=== PATIENT | male | born 1950 | race Two or more races ===

== ENCOUNTER 2017-12-15 06:59 | Inpatient (IN) | payer MEDICARE, OTHER ==
--- NOTE | 2017-12-11 13:01 | HP ---
Satellite [facility] - Chief Complaint Chief Complaint: left knee pain - Past Medical History Allergies/Adverse Reactions: Allergies Allergy/AdvReac Type Severity Reaction Status Date / Time No Known Drug Allergies Allergy Verified 12/11/17 11:11 - Current Medications Current Medications: Home Medications Medication Instructions Recorded Metformin HCl 500 mg PO DAILY 01/04/16 Simvastatin [Zocor -] 20 mg PO DAILY 01/04/16 Ferrous Sulfate [Iron] 325 mg PO DAILY 12/11/17 Satellite Physical Exam - Physical Examination General Appearance: Well Nourished, Well Developed, Alert & Oriented x3 ENT: Clear Lung: Normal air movement Heart: Regular rate & rhythm Extremities: Other (left knee- + swelling, + ttp, decr rom, nvi xrays show grade 4 tricompartmental djd) Neurological: Intact, Alert, Oriented Satellite Impression/Plan - Impression/Plan Impression: left knee djd Operative Procedure: left ruthann tkr Date to be Performed: 12/15/17
[2017-12-15] MEDS ORDERED: CELECOXIB 200 MG CAPSULE PO ONE (07:10)
[2017-12-15] MEDS ORDERED: GABAPENTIN 300 MG CAPSULE (FP) PO ONE (07:10)
[2017-12-15] MEDS ORDERED: TRANEXAMIC ACID 1000 MG/10 ML VIAL IVPUSH ONE (07:10)
[2017-12-15] MEDS ORDERED: CEFAZOLIN 2 GM in DEXTROSE 5%-WATER - 50 ML IVPB ONE (07:10)
[2017-12-15] MEDS ORDERED: oxyCODONE HCL 10 MG SUSTAINED ACTING TABLET PO ONE (07:10)
[2017-12-15] MEDS ORDERED: VANCOMYCIN 1,000 MG VIAL (RESTRICTED TO ID ONLY) ONE (07:17)
[2017-12-15] MEDS ORDERED: ceFAZolin SODIUM 1 GM VIAL ONE ×2 (07:17→09:42)
[2017-12-15 08:05] VITALS: BMI 33.5
[2017-12-15] MEDS ORDERED: BUPIVACAINE LIPOSOME/PF (EXPAREL) 266 MG/20 ML VIAL ONE (08:18)
[2017-12-15] MEDS ORDERED: DEXAMETHASONE SOD PHOSPHATE/PF 10 MG/ML SDV ONE (08:18)
[2017-12-15] MEDS ORDERED: MIDAZOLAM HCL 2 MG/2 ML SINGLE DOSE VIAL ONE (08:19)
[2017-12-15] MEDS ORDERED: ROPIVACAINE HCL 0.5% 30ML VIAL ONE (08:19)
[2017-12-15] MEDS ORDERED: SODIUM CHLORIDE 0.9% P/F 10 ML VIAL IJ ONE (08:19)
[2017-12-15] MEDS ORDERED: ePHEDrine SULFATE 50 MG/1 ML AMPULE ONE (09:34)
[2017-12-15] MEDS ORDERED: ONDANSETRON 4 MG/2 ML VIAL ONE (09:42)
[2017-12-15] MEDS ORDERED: PROPOFOL 20 ML ONE ×2 (09:42)
[2017-12-15] MEDS ORDERED: DEXAMETHASONE SOD PHOSPHATE 4 MG/1 ML VIAL ONE (09:42)
[2017-12-15] MEDS ORDERED: MAGNESIUM HYDROX 2400MG/30ML ORAL SUSPENSION 30 ML CUP PO PRN (11:14)
[2017-12-15] MEDS ORDERED: ONDANSETRON 4 MG/2 ML VIAL IVPUSH PRN ×2 (11:14→11:28)
[2017-12-15] MEDS ORDERED: MAG HYDROX/AL HYDROX/SIMETH 30 ML UNIT-DOSE CUP PO PRN (11:14)
[2017-12-15] MEDS ORDERED: LACTATED RINGERS SOLUTION 1,000 ML IV SCH ×2 (11:15→11:30)
--- NOTE | 2017-12-15 11:17 | OP ---
Operative Note - Note: Operative Date: 12/15/17 ([facility]) Pre-Operative Diagnosis: left knee djd Operation: left ruthann tkr Post-Operative Diagnosis: Same as Pre-op Surgeon: Doug Escobar Certification Officer: Cassius Rodriguez Anesthesiologist/CYCLE DIRECTOR: Artie Hinson Anesthesia: Spinal, Local Specimens Removed: bone fragments Estimated Blood Loss (mls): 200 Operative Report Dictated: Yes
[2017-12-15] MEDS ORDERED: PROMETHAZINE HCL 25 MG/1 ML VIAL IVPUSH PRN (11:28)
[2017-12-15] MEDS ORDERED: ACETAMINOPHEN 325 MG TABLET (FP) PO SCH (11:30)
--- NOTE | 2017-12-15 14:18 | SPEC ---
DATE OF OPERATION: 12/15/2017 PREOPERATIVE DIAGNOSIS: Degenerative joint disease, left knee. POSTOPERATIVE DIAGNOSIS: Degenerative joint disease, left knee. PROCEDURE: Press-fit left total knee replacement with robotic-assisted navigation (MAKOplasty). SURGICAL ATTENDING: Ramon Escobar MD [employer] RN: QING Blas ANESTHESIA: Regional and spinal. CLOSURE: A Triathlon Press-Fit knee system with a 4 femur, 5 tibia, 35 Press-Fit patella; a 9 polyethylene; No. 1 Vicryl, fascia; 0 and 2-0, subcutaneous; and 3-0 Monocryl subcuticular with skin glue; 4-0 undyed Vicryl for pin sites. ESTIMATED BLOOD LOSS: Approximately 100 mL. COMPLICATIONS: None. TOURNIQUET TIME: No tourniquet was used. DESCRIPTION OF OPERATIVE PROCEDURE: Patient was taken to the operating room on December 15, 2017. Regional and spinal anesthesia was administered by the anesthesiologist. IV Kefzol was administered prophylactically prior to the case as well as TXA. The left lower extremity was prepped and draped in the usual sterile fashion. The midline 10- to 12-cm longitudinal incision was made. Hemostasis was achieved with Bovie cautery. Sharp dissection was carried down to the extensor mechanism which was perform the procedure. Medial parapatellar arthrotomy was then performed, leaving a cuff of tissue for later closure. The patella was inverted and the knee was flexed up. The fat pad was excised. Subperiosteal dissection was done on the anteromedial proximal tibia until the knee was able to be brought forward. This was facilitated by taking the ACL, PCL and medial and lateral menisci. Checkpoints were placed in both the femur and in the tibia. Two parallel threaded pins were drilled superior to the knee joint through the already made incision from anterior to posterior just going through the anterior cortex but just engaging but not going through the posterior cortex. Two threaded pins were drilled through 2 small stab incisions in parallel fashion 1 handbreadth below the tibial tubercle through the anterior cortex of the tibia and engaging but not going through the posterior cortex. Both sets of pins were attached to navigation arrays for the AIDA system. The knee was then registered with the navigation system with center of rotation of the hip, medial and lateral malleoli and multiple sites both on the tibia and on the femur. Confirmation of excellent registration was confirmed by "popping the bubbles." At this time, the knee was thoroughly inspected to remove all osteophytes around the knee. The knee was then tensioned in varus/valgus at both full extension and at 90 degrees of flexion to ascertain our gaps. The virtual position of the components was optimized to ensure equal gaps throughout the range of motion. Once this was performed, the robot was brought into the field, was registered. The bone was cut as per the specifications on both the tibia and on the femur. The box cuts were then made as well. Excellent trial stability was obtained on the femur. The tibial baseplate was allowed to "find itself" and then was clipped into place. Confirmation of excellent external rotation of that component was confirmed by the navigation device as well.The patella was calibered for thickness and cut at the appropriate level. The appropriate lollipop was used to drill 3 holes in the patella and a trial asymmetric patellar button was applied. The knee was taken through a range of motion and found to have excellent stability from full extension to full flexion with excellent tracking of the patella. The trial components were then removed. The lug holes were drilled in the femur. The cementless keel was punched in the tibia. The real Press-Fit components were malleted into place, first with the tibia and then with the femur, and then the patella was crimped into place as well. The real polyethylene liner was then clipped into place. Range of motion, stability and tracking were as described earlier. The knee was thoroughly irrigated with copious amounts of irrigation. Vancomycin powder was placed inside the joint. The medial parapatellar arthrotomy was then closed using No. 1 Vicryl interrupted suture. Post closure of the arthrotomy, the knee was taken through a range of motion and found to have no undue tension on the repair. The subcutaneous was then pulse antibiotic irrigated, closed with 0 and 2-0 Vicryl and 3-0 Monocryl subcuticular with skin glue for the skin. Prior to closure, the checkpoints were removed as were the threaded pins. The tibial pin sites were closed with 4-0 undyed Vicryl. A sterile pressure Aquacel dressing was applied. No tourniquet was used during the case. The total blood loss was approximately 100 mL. No complication. Patient was transferred to recovery in stable condition. RAMON ESCOBAR M.D. DAVID/[id number]
[2017-12-15] MEDS: INSULIN SLIDING SCALE (NOVOLOG) 1 VIAL SQ SCH (17:04)
[2017-12-15] MEDS: CEFAZOLIN 1 GM/D5W 1 GRAM/50 ML BAG IVPB SCH (17:05)
[2017-12-15] MEDS: oxyCODONE HCL 5 MG TABLET PO PRN ×2 (17:05→22:10)
[2017-12-15] MEDS: SENNOSIDES/DOCUSATE COMBO (SENNA PLUS) TABLET (UD) PO SCH (22:10)
[2017-12-15] MEDS: ATORVASTATIN CA 10 MG TABLET (FP) PO SCH (22:10)
[2017-12-15] MEDS: oxyCODONE HCL 10 MG SUSTAINED ACTING TABLET PO SCH (22:10)
[2017-12-15] MEDS: GABAPENTIN 300 MG CAPSULE (FP) PO SCH (22:10)
[2017-12-16] MEDS: CEFAZOLIN 1 GM/D5W 1 GRAM/50 ML BAG IVPB SCH (02:00)
[2017-12-16] MEDS: metFORMIN HCL 500 MG TABLET (FP) PO SCH (06:49)
[2017-12-16] MEDS: oxyCODONE HCL 5 MG TABLET PO PRN ×2 (06:50→08:47)
[2017-12-16] MEDS: ASPIRIN 325 MG TABLET PO SCH (08:00)
[2017-12-16] MEDS: ACETAMINOPHEN 325 MG TABLET (FP) PO SCH ×3 (08:05→20:15)
[2017-12-16 08:08] LABS: HEMATOCRIT 35.7 % (35.4-49); HEMOGLOBIN 12.2 GM/dl (11.7-16.9); MCH 32.6 pg (25.7-33.7); MCHC 34.1 g/dl (32.0-35.9); MEAN CELL VOLUME 95.5 fl (80-96); MEAN PLT VOLUME 9.8 fl (7.5-11.1); PLATELET COUNT 132 K/MM3 (134-434); RBC 3.73 M/mm3 (4.00-5.60); RDW 12.5 % (11.9-15.9); WHITE BLOOD COUNT 14.1 K/mm3 (4.0-10.8)
[2017-12-16] MEDS: oxyCODONE HCL 10 MG SUSTAINED ACTING TABLET PO SCH ×2 (09:29→22:50)
[2017-12-16] MEDS: GABAPENTIN 300 MG CAPSULE (FP) PO SCH ×2 (09:29→22:50)
[2017-12-16] MEDS: SENNOSIDES/DOCUSATE COMBO (SENNA PLUS) TABLET (UD) PO SCH ×2 (09:29→22:49)
[2017-12-16] MEDS: MULTIVITAMINS (DAILY MVI) TABLET (FP) PO SCH (09:30)
[2017-12-16] MEDS: PANTOPRAZOLE 40 MG TABLET (FP) PO SCH (09:30)
[2017-12-16] MEDS ORDERED: PATIENT'S OWN MEDICATION (NON-FORMULARY) (Simvastatin 20 MG) PO SCH (10:00)
--- NOTE | 2017-12-16 21:14 | PN ---
Progress Note (short form) - Note Progress Note: AVSS COMFORTABLE BANDAGES DRY AND INTACT NVI CALF SOFT AND NT AROM 0-100 IMP: DOING WELL PLAN: DC TOMORROW IN AM, HOME PT, F/U X 1 WEEK IN MY OFFICE
[2017-12-16] MEDS: INSULIN SLIDING SCALE (NOVOLOG) 1 VIAL SQ SCH (22:47)
[2017-12-16] MEDS: ATORVASTATIN CA 10 MG TABLET (FP) PO SCH (22:49)
[2017-12-17] MEDS: ACETAMINOPHEN 325 MG TABLET (FP) PO SCH ×2 (06:34→08:00)
[2017-12-17] MEDS: metFORMIN HCL 500 MG TABLET (FP) PO SCH (07:03)
[2017-12-17] MEDS: INSULIN SLIDING SCALE (NOVOLOG) 1 VIAL SQ SCH (07:03)
[2017-12-17 07:25] VITALS: BP 117/74; PULSE 81; TEMP 97.6
[2017-12-17] MEDS: ASPIRIN 325 MG TABLET PO SCH (08:00)
[2017-12-17 09:19] LABS: HEMATOCRIT 34.4 % (35.4-49); HEMOGLOBIN 11.7 GM/dl (11.7-16.9); MCH 32.3 pg (25.7-33.7); MCHC 33.9 g/dl (32.0-35.9); MEAN CELL VOLUME 95.5 fl (80-96); MEAN PLT VOLUME 11.4 fl (7.5-11.1); PLATELET COUNT 107 K/MM3 (134-434); RBC 3.61 M/mm3 (4.00-5.60); RDW 12.7 % (11.9-15.9); WHITE BLOOD COUNT 12.8 K/mm3 (4.0-10.8)
[2017-12-17] MEDS: oxyCODONE HCL 10 MG SUSTAINED ACTING TABLET PO SCH (09:54)
[2017-12-17] MEDS: oxyCODONE HCL 5 MG TABLET PO PRN (09:54)
[2017-12-17] MEDS: GABAPENTIN 300 MG CAPSULE (FP) PO SCH (09:55)
[2017-12-17] MEDS: PANTOPRAZOLE 40 MG TABLET (FP) PO SCH (09:55)
[2017-12-17] MEDS: SENNOSIDES/DOCUSATE COMBO (SENNA PLUS) TABLET (UD) PO SCH (09:55)
[2017-12-17] MEDS: MULTIVITAMINS (DAILY MVI) TABLET (FP) PO SCH (09:55)
--- NOTE | 2017-12-22 15:43 | PATH ---
Surgical Pathology Report Patient Name: CINTIA YEPEZ Med. Rec. #: [id number] /Age/Gender: 1950 (Age: 67) / M Account: [id number] Location: [facility] MED-SURG Taken: 12/15/2017 Received: 12/15/2017 Reported: 12/22/2017 Physicians: Doug Escobar M.D. Specimen(s) Received LEFT KNEE BONES Clinical History Osteoarthritis Final Diagnosis BONE AND SOFT TISSUE, LEFT KNEE, REPLACEMENT: DEGENERATIVE JOINT DISEASE. Electronically Signed Niko Romero M.D. Gross Description Received in formalin labeled "left knee bones," is a 16.0 x 11.5 x 2.0 cm aggregate of multiple irregular portions of bone and soft tissue. The tibial plateau measures 7.8 x 5.5 x 1.6 cm. There is a 1.5 cm in greatest dimension area of eburnation identified. The remaining articular surfaces are chris-yellow and diffusely granular. The underlying trabecular bone is yellow and hard. Sp[place] sections are submitted in one cassette, following decalcification. 12/18/2017 [facility]12/18/2017
== END 2017-12-17 11:51 | disposition home health service (06) | DRG 470 ==
LOC: FM/S 06:59
PROVIDERS: ADMIT Orthopaedic Surgery; ATTEND Orthopaedic Surgery
PROC: 8E0Y0CZ Robotic Assisted Procedure of Lower Extremity, Open Approach (ICD-10-PCS; 2017-12-15)
PROC: 0SRD06A Replacement of Left Knee Joint with Oxidized Zirconium on Polyethylene Synthetic Substitute, Uncemented, Open Approach (ICD-10-PCS; principal; 2017-12-15 09:46)
DX: M17.12 Unilateral primary osteoarthritis, left knee (principal)
CPT/HCPCS: 36415; 73560-TC-LT-FY; 82962; 85027; 88304-TC; 88311-TC; 94010; 94760; 97116-GP; 97161-GP

== ENCOUNTER 2018-04-03 05:59 | Inpatient (IN) | payer MEDICARE, OTHER ==
[2018-03-30 16:46] VITALS: BMI 33.6
[2018-04-03] MEDS ORDERED: GABAPENTIN 300 MG CAPSULE (FP) PO ONE (06:20)
[2018-04-03] MEDS ORDERED: CEFAZOLIN 2 GM in DEXTROSE 5%-WATER - 50 ML IVPB ONE (06:20)
[2018-04-03] MEDS ORDERED: CELECOXIB 200 MG CAPSULE PO ONE (06:20)
[2018-04-03] MEDS ORDERED: oxyCODONE HCL 10 MG SUSTAINED ACTING TABLET PO ONE (06:20)
[2018-04-03] MEDS ORDERED: TRANEXAMIC ACID 1000 MG/10 ML VIAL IVPUSH ONE (06:20)
[2018-04-03] MEDS ORDERED: SODIUM CHLORIDE 0.9% P/F 10 ML VIAL IJ ONE ×2 (06:43→07:06)
[2018-04-03] MEDS ORDERED: DEXAMETHASONE SOD PHOSPHATE/PF 10 MG/ML SDV ONE (06:43)
[2018-04-03] MEDS ORDERED: BUPIVACAINE HCL/PF (5 MG/ML) 30 ML VIAL IJ ONE ×2 (06:43→06:54)
[2018-04-03] MEDS ORDERED: BUPIVACAINE LIPOSOME/PF (EXPAREL) 266 MG/20 ML VIAL ONE (06:43)
[2018-04-03] MEDS ORDERED: MIDAZOLAM HCL 2 MG/2 ML SINGLE DOSE VIAL ONE (06:43)
[2018-04-03] MEDS ORDERED: ceFAZolin SODIUM 1 GM VIAL ONE (07:06)
[2018-04-03] MEDS ORDERED: DEXAMETHASONE SOD PHOSPHATE 4 MG/1 ML VIAL ONE (07:06)
[2018-04-03] MEDS ORDERED: LIDOCAINE HCL/PF 2% SDV 5ML VIAL ONE (07:06)
[2018-04-03] MEDS ORDERED: ONDANSETRON 4 MG/2 ML VIAL ONE (07:06)
[2018-04-03] MEDS ORDERED: KETOROLAC TROMETHAMINE 30 MG/1 ML VIAL ONE (07:06)
[2018-04-03] MEDS ORDERED: SUCCINYLCHOLINE CHLORIDE 200 MG/10 ML VIAL ONE (07:07)
--- NOTE | 2018-04-03 07:48 | HP ---
Satellite [facility] - Chief Complaint Chief Complaint: right knee pain - Past Medical History Allergies/Adverse Reactions: Allergies Allergy/AdvReac Type Severity Reaction Status Date / Time No Known Drug Allergies Allergy Verified 12/11/17 11:11 - Current Medications Current Medications: Home Medications Medication Instructions Recorded Metformin HCl 500 mg PO DAILY 01/04/16 Simvastatin [Zocor -] 20 mg PO DAILY 01/04/16 Ferrous Sulfate [Iron] 325 mg PO DAILY 12/11/17 Aspirin [ASA -] 325 mg PO DAILY@0800 tablet 12/15/17 Satellite Physical Exam - Physical Examination Vital Signs: Vital Signs Period Temp Pulse Resp BP Sys/Bernal Pulse Ox Last 24 Hr 98.3 F 62 18 136/77 General Appearance: Well Nourished, Well Developed, Alert & Oriented x3 ENT: Clear Lung: Normal air movement Heart: Regular rate & rhythm Extremities: Other (right knee- + swelling, + ttp, decr rom, nvi xrays show grade 4 tricompartmental djd) Neurological: Intact, Alert, Oriented Satellite Impression/Plan - Impression/Plan Impression: right knee djd Operative Procedure: right ruthann tkr Date to be Performed: 04/03/18
[2018-04-03] MEDS ORDERED: oxyCODONE HCL 5 MG TABLET PO PRN (07:51)
[2018-04-03] MEDS ORDERED: ONDANSETRON 4 MG/2 ML VIAL IVPUSH PRN ×2 (07:51→09:52)
[2018-04-03] MEDS ORDERED: PROPOFOL 20 ML ONE (08:16)
[2018-04-03] MEDS ORDERED: VANCOMYCIN 1,000 MG VIAL (RESTRICTED TO ID ONLY) IVPB ONE (09:06)
[2018-04-03] MEDS ORDERED: MAGNESIUM HYDROX 2400MG/30ML ORAL SUSPENSION 30 ML CUP PO PRN (09:52)
[2018-04-03] MEDS ORDERED: MAG HYDROX/AL HYDROX/SIMETH 30 ML UNIT-DOSE CUP PO PRN (09:52)
--- NOTE | 2018-04-03 09:55 | OP ---
Operative Note - Note: Operative Date: 04/03/18 ([facility]) Pre-Operative Diagnosis: right knee djd Operation: right ruthann tkr Post-Operative Diagnosis: Same as Pre-op Surgeon: Doug Escobar Stove Tender: Cassius Rodriguez Anesthesiologist/VOCAL MUSIC INSTRUCTOR: Francesco Godoy Anesthesia: Spinal, Local Specimens Removed: bone fragments Estimated Blood Loss (mls): 200 Operative Report Dictated: Yes
[2018-04-03] MEDS ORDERED: LACTATED RINGERS SOLUTION 1,000 ML IV SCH (10:00)
--- NOTE | 2018-04-03 12:02 | SPEC ---
DATE OF OPERATION: 04/03/2018 PREOPERATIVE DIAGNOSIS: Degenerative joint disease, right knee. POSTOPERATIVE DIAGNOSIS: Degenerative joint disease, right knee. PROCEDURE: Right total knee replacement with robotic-assisted navigation (MAKOplasty). SURGICAL ATTENDING: Doug Escobar MD LEGAL INSTRUCTOR: QING Blas ANESTHESIA: Regional and spinal. CLOSURE: A Press-Fit Triathlon knee system with a 5 femur, 5 tibia, 9 polyethylene, a 32 patella; No. 1 Vicryl, fascia; 0 and 2-0 for subcutaneous; and 3-0 Monocryl subcuticular with skin glue for skin; 4-0 undyed Vicryl for pin sites. ESTIMATED BLOOD LOSS: Approximately 100 mL. COMPLICATIONS: None. CONDITION: To recovery room in stable condition. DESCRIPTION OF OPERATIVE PROCEDURE: Patient was taken to the operating room on April 03, 2018. Regional and spinal anesthesia was administered by the anesthesiologist. IV Kefzol was administered prophylactically prior to the case as well as TXA. The right lower extremity was prepped and draped in the usual sterile fashion. The midline 10- to 12-cm longitudinal incision was made. Hemostasis was achieved with Bovie cautery. Sharp dissection was carried down to the extensor mechanism which was perform the procedure. Medial parapatellar arthrotomy was then performed, leaving a cuff of tissue for later closure. The patella was inverted and the knee was flexed up. The fat pad was excised. Subperiosteal dissection was done on the anteromedial proximal tibia until the knee was able to be brought forward. This was facilitated by taking the ACL, PCL and medial and lateral menisci. Checkpoints were placed in both the femur and in the tibia. Two parallel threaded pins were drilled superior to the knee joint through the already made incision from anterior to posterior just going through the anterior cortex but just engaging but not going through the posterior cortex. Two threaded pins were drilled through 2 small stab incisions in parallel fashion 1 handbreadth below the tibial tubercle through the anterior cortex of the tibia and engaging but not going through the posterior cortex. Both sets of pins were attached to navigation arrays for the AIDA system. The knee was then registered with the navigation system with center of rotation of the hip, medial and lateral malleoli and multiple sites both on the tibia and on the femur. Confirmation of excellent registration was confirmed by "popping the bubbles." At this time, the knee was thoroughly inspected to remove all osteophytes around the knee. The knee was then tensioned in varus/valgus at both full extension and at 90 degrees of flexion to ascertain our gaps. The virtual position of the components was optimized to ensure equal gaps throughout the range of motion. Once this was performed, the robot was brought into the field, was registered. The bone was cut as per the specifications on both the tibia and on the femur. The box cuts were then made as well. Excellent trial stability was obtained on the femur. The tibial baseplate was allowed to "find itself" and then was clipped into place. Confirmation of excellent external rotation of that component was confirmed by the navigation device as well.The patella was calibered for thickness and cut at the appropriate level. The appropriate lollipop was used to drill 3 holes in the patella and a trial asymmetric patellar button was applied. The knee was taken through a range of motion and found to have excellent stability from full extension to full flexion with excellent tracking of the patella. The trial components were then removed. The lug holes were drilled in the femur. The cementless keel was punched in the tibia. The real Press-Fit components were malleted into place, first with the tibia and then with the femur, and then the patella was crimped into place as well. The real polyethylene liner was then clipped into place. Range of motion, stability and tracking were as described earlier. The knee was thoroughly irrigated with copious amounts of irrigation. Vancomycin powder was placed inside the joint. The medial parapatellar arthrotomy was then closed using No. 1 Vicryl interrupted suture. Post closure of the arthrotomy, the knee was taken through a range of motion and found to have no undue tension on the repair. The subcutaneous was then pulse antibiotic irrigated, closed with 0 and 2-0 Vicryl and 3-0 Monocryl subcuticular with skin glue for the skin. Prior to closure, the checkpoints were removed as were the threaded pins. The tibial pin sites were closed with 4-0 undyed Vicryl. A sterile pressure Aquacel dressing was applied. No tourniquet was used during the case. The total blood loss was approximately 100 mL. No complication. Patient was transferred to recovery in stable condition. Pravin [id number]
[2018-04-03] MEDS: PANTOPRAZOLE 40 MG TABLET (FP) PO SCH (13:40)
[2018-04-03] MEDS: ACETAMINOPHEN 325 MG TABLET (FP) PO SCH ×2 (13:45→19:51)
[2018-04-03] MEDS: FERROUS SO4 325 MG TABLET (FP) PO SCH (13:45)
[2018-04-03] MEDS: CEFAZOLIN 2 GM/D5W 2 GM/50 ML ML IVPB SCH ×2 (16:00→23:46)
[2018-04-03] MEDS: INSULIN SLIDING SCALE (NOVOLOG) 1 VIAL SQ SCH ×3 (16:30→21:40)
[2018-04-03] MEDS: metFORMIN HCL 500 MG TABLET (FP) PO SCH (16:40)
[2018-04-03] MEDS: oxyCODONE HCL 5 MG TABLET PO PRN ×2 (17:00→21:10)
[2018-04-03] MEDS: SENNOSIDES/DOCUSATE COMBO (SENNA PLUS) TABLET (UD) PO SCH ×2 (19:42→21:10)
[2018-04-03] MEDS: LACTATED RINGERS SOLUTION 1,000 ML IV SCH (19:43)
[2018-04-03] MEDS: MULTIVITAMINS (DAILY MVI) TABLET (FP) PO SCH (20:50)
[2018-04-03] MEDS: oxyCODONE HCL 10 MG SUSTAINED ACTING TABLET PO SCH ×2 (20:50→21:10)
[2018-04-03] MEDS: ATORVASTATIN CA 10 MG TABLET (FP) PO SCH (21:10)
[2018-04-04] MEDS: ACETAMINOPHEN 325 MG TABLET (FP) PO SCH ×4 (02:23→19:41)
[2018-04-04] MEDS: INSULIN SLIDING SCALE (NOVOLOG) 1 VIAL SQ SCH ×4 (06:58→21:31)
[2018-04-04 08:39] LABS: HEMATOCRIT 33.3 % (35.4-49); HEMOGLOBIN 11.5 GM/dl (11.7-16.9); MCH 31.5 pg (25.7-33.7); MCHC 34.5 g/dl (32.0-35.9); MEAN CELL VOLUME 91.5 fl (80-96); MEAN PLT VOLUME 9.7 fl (7.5-11.1); PLATELET COUNT 146 K/MM3 (134-434); RBC 3.64 M/mm3 (4.00-5.60); RDW 13.8 % (11.9-15.9); WHITE BLOOD COUNT 16.4 K/mm3 (4.0-10.8)
--- NOTE | 2018-04-04 08:47 | PN ---
Progress Note (short form) - Note Progress Note: Ortho Pt seen and examined s/p right ruthann tkr pod #1 Selected Entries 04/04/18 05:00 Temperature 98.2 F Pulse Rate 74 Respiratory 20 Rate Blood Pressure 124/76 Laboratory Tests 04/04/18 07:30 WBC 16.4 H Hgb 11.5 L Hct 33.3 L Plt Count 146 D dressing c/d/i, calf soft, nt rom 0-60, nvi a/p PT dvt ppx pain control d/c home tomorrow if stable
[2018-04-04] MEDS: FERROUS SO4 325 MG TABLET (FP) PO SCH (09:11)
[2018-04-04] MEDS: SENNOSIDES/DOCUSATE COMBO (SENNA PLUS) TABLET (UD) PO SCH ×2 (09:11→21:32)
[2018-04-04] MEDS: oxyCODONE HCL 10 MG SUSTAINED ACTING TABLET PO SCH ×2 (09:11→21:32)
[2018-04-04] MEDS: ASPIRIN 325 MG TABLET PO SCH (09:11)
[2018-04-04] MEDS: MULTIVITAMINS (DAILY MVI) TABLET (FP) PO SCH (09:11)
[2018-04-04] MEDS: PANTOPRAZOLE 40 MG TABLET (FP) PO SCH (09:11)
[2018-04-04] MEDS: metFORMIN HCL 500 MG TABLET (FP) PO SCH (09:11)
--- NOTE | 2018-04-04 10:27 | PN ---
Progress Note (short form) - Note Progress Note: Post op day#1.S/p Right total knee replacement under spinal anesthesia with R adductor canal and popletial N block uneventful.Patient stable and has pain score of 2-3/10.No any anesthesia related problem.Patient DC from the anesthesia care.
[2018-04-04] MEDS: LACTATED RINGERS SOLUTION 1,000 ML IV SCH (10:30)
[2018-04-04] MEDS: oxyCODONE HCL 5 MG TABLET PO PRN (18:10)
[2018-04-04] MEDS: ATORVASTATIN CA 10 MG TABLET (FP) PO SCH (21:32)
[2018-04-05] MEDS: ACETAMINOPHEN 325 MG TABLET (FP) PO SCH ×2 (02:15→09:39)
[2018-04-05] MEDS: oxyCODONE HCL 5 MG TABLET PO PRN ×3 (02:15→09:40)
[2018-04-05 05:44] VITALS: BP 120/65; PULSE 82; TEMP 98.4
[2018-04-05] MEDS: INSULIN SLIDING SCALE (NOVOLOG) 1 VIAL SQ SCH (06:18)
[2018-04-05 07:26] LABS: HEMATOCRIT 32.3 % (35.4-49); HEMOGLOBIN 10.9 GM/dl (11.7-16.9); MCHC 33.6 g/dl (32.0-35.9); MEAN CELL VOLUME 92.2 fl (80-96); MEAN PLT VOLUME 9.1 fl (7.5-11.1); PLATELET COUNT 149 K/MM3 (134-434); RDW 14.1 % (11.9-15.9); WHITE BLOOD COUNT 12.4 K/mm3 (4.0-10.8)
--- NOTE | 2018-04-05 08:35 | PN ---
Progress Note (short form) - Note Progress Note: Ortho Pt seen and examined s/p right ruthann tkr pod #2 Selected Entries 04/05/18 05:42 Temperature 98.4 F Pulse Rate 82 Respiratory 18 Rate Blood Pressure 120/65 Laboratory Tests 04/05/18 07:05 WBC 12.4 H Hgb 10.9 L Hct 32.3 L Plt Count 149 dressing c/d/i, calf soft, nt rom 0-60, nvi a/p PT dvt ppx pain control d/c home today f/u in 1 week
--- NOTE | 2018-04-05 08:36 | DS ---
Physical Examination Vital Signs: Vital Signs Temperature 98.4 F 04/05/18 05:42 Pulse Rate 82 04/05/18 05:42 Respiratory Rate 18 04/05/18 05:42 Blood Pressure 120/65 04/05/18 05:42 O2 Sat by Pulse Oximetry (%) 95 04/05/18 05:42 Labs: CBC, BMP 04/05/18 07:05 Discharge Summary Reason For Visit: OSTEOARTHRITIS Procedures: Principal: s/p right ruthann tkr Hospital Course: admitted for elective right ruthann tkr, uneventful post-op, stable for d/c Condition: Good - Instructions Diet, Activity, Other Instructions: Post-op Instructions-Total Knee Replacement Call the office for a follow-up appointment in 1 week - [phone] Aspirin 325mg daily for 6 weeks. Pain medication was sent into your pharmacy. Apply Graduated Compression Stockings (TEDs) to both lower extremities- remove daily for hygiene ONLY Apply Sequential Compression Device (SCDs) to both Lower extremities remove for PT and hygiene ONLY Apply cold packs to affected area for 15 minutes every 2 hours. Physical Therapist will come to your home for the first 5 days. You will be set up with outpatient PT at your first post-operative visit. Patient may ambulate as tolerated-encourage self care (at least every 2-3 hours while awake) with walker or cane Maintain Aquacel (waterproof) dressing to operative wound (will be removed by surgeon at first office visit) Shower with Aquacel dressing in place-if Aquacel integrity compromised, remove and apply dry sterile dressing and notify Orthopedist. DO NOT SHOWER unless Orthopedists approves without Aquacel dressing CONTACT THE OFFICE FOR ANY CHANGE IN YOUR CONDITION (for example-fever greater than 102 degrees, excessive bleeding from operative site, purulent drainage, severe swelling or pain) GO TO THE EMERGENCY ROOM IF THERE IS A MEDICAL EMERGENCY Knee Precautions: * Keep a rolled towel under affected heel while in bed or chair (to keep knee in extension) * Keep affected leg elevated except during mealtimes * DO NOT PLACE PILLOW UNDER AFFECTED KNEE * If you have any questions, please do not hesitate to call the office - . Referrals: Doug Escobar MD [Staff Physician] - Disposition: VNS/HOME HEALTH CARE - Home Medications Comprehensive Discharge Medication List: Ambulatory Orders Metformin HCl 500 mg PO DAILY 01/04/16 Simvastatin [Zocor -] 20 mg PO DAILY 01/04/16 Ferrous Sulfate [Iron] 325 mg PO DAILY 12/11/17 Aspirin [ASA -] 325 mg PO DAILY@0800 tablet 12/15/17 Oxycodone HCl/Acetaminophen [Percocet 5-325 mg Tablet] 1 - 2 tab PO Q6H #50 tab MDD 8 04/03/18
[2018-04-05] MEDS: ASPIRIN 325 MG TABLET PO SCH (09:40)
[2018-04-05] MEDS: metFORMIN HCL 500 MG TABLET (FP) PO SCH (09:40)
[2018-04-05] MEDS: SENNOSIDES/DOCUSATE COMBO (SENNA PLUS) TABLET (UD) PO SCH (09:42)
[2018-04-05] MEDS: PANTOPRAZOLE 40 MG TABLET (FP) PO SCH (09:42)
--- NOTE | 2018-04-05 16:18 | PATH ---
Surgical Pathology Report Patient Name: CINTIA YEPEZ Med. Rec. #: [id number] /Age/Gender: 1950 (Age: 67) / M Account: [id number] Location: [facility] Taken: 04/03/2018 Received: 04/03/2018 Reported: 04/05/2018 Physicians: Doug Escobar M.D. Specimen(s) Received RIGHT KNEE BONE Clinical History Right knee osteoarthritis Final Diagnosis BONE, RIGHT KNEE, TOTAL KNEE REPLACEMENT: DEGENERATIVE JOINT DISEASE. Electronically Signed Jayna Cortés M.D. Gross Description Received in formalin labeled "right knee bone," is a 12.0 x 11.0 x 2.0 cm aggregate of chris portions of bone and soft tissue. The tibial plateau measures 7.7 x 5.5 x 1.6 cm. There are multiple areas of eburnation present, measuring up to 2 cm in greatest dimension. The remaining articular surfaces are chris-yellow and diffusely granular. The underlying trabecular bone is yellow and hard. [place]er sections are submitted in one cassette, following decalcification. 04/04/2018 [place]04/04/2018
== END 2018-04-05 11:37 | disposition home health service (06) | DRG 470 ==
LOC: FM/S 05:59
PROVIDERS: ADMIT Orthopaedic Surgery; ATTEND Orthopaedic Surgery
PROC: 8E0Y0CZ Robotic Assisted Procedure of Lower Extremity, Open Approach (ICD-10-PCS; 2018-04-03)
PROC: 0SRC0JA Replacement of Right Knee Joint with Synthetic Substitute, Uncemented, Open Approach (ICD-10-PCS; principal; 2018-04-03 08:31)
DX: M17.11 Unilateral primary osteoarthritis, right knee (principal)
CPT/HCPCS: 36415; 73560-TC-RT-FY; 82962; 85027; 88304-TC; 88311-TC; 94010; 94760; 97116-GP; 97162-GP

== ENCOUNTER 2018-07-16 09:19 | Day surgery (SDC) | payer MEDICARE ==
[2018-07-16] MEDS ORDERED: MIDAZOLAM HCL 2 MG/2 ML SINGLE DOSE VIAL ONE ×2 (10:35)
[2018-07-16] MEDS ORDERED: DEXAMETHASONE SOD PHOSPHATE 4 MG/1 ML VIAL ONE (11:52)
--- NOTE | 2018-07-16 13:06 | OP ---
Operative Note - Note: Operative Date: 07/16/18 Pre-Operative Diagnosis: Left kidney stones Operation: Left ESWL Findings: 5 mm mid pole Left renal stone Post-Operative Diagnosis: Same as Pre-op Surgeon: Gelacio Anderson Anesthesia: Fractional Estimated Blood Loss (mls): 0
[2018-07-16 13:49] VITALS: TEMP 97.5
[2018-07-16 13:52] VITALS: BP 125/77; PULSE 60
--- NOTE | 2018-07-17 08:34 | OP ---
DATE OF OPERATION: 07/16/2018 PREOPERATIVE DIAGNOSIS: Left renal stone. POSTOPERATIVE DIAGNOSIS: Left renal stone. PROCEDURE: Left extracorporeal shock wave lithotripsy. ATTENDING: Jatinder Morris MD ANESTHESIA: Fractional. OPERATION WENT FOLLOWS: The patient was brought in the operating room, placed in supine position on the operating room table. Ultrasonography and fluoroscopy were performed. A 5-mm left renal stone was identified. At this point, anesthesia and preoperative antibiotics were administered. Shock wave lithotripsy was then started, 2500 impulses at 17 joules of power were administered to the stone under real time ultrasonography and fluoroscopy. Excellent fragmentation of the stone was noted. No complications were noted. The disposition of the patient was to the recovery room. JATINDER MORRIS M.D. [id number]
== END 2018-07-16 13:45 | disposition home or self-care (01) ==
LOC: JASU-SURG 09:19
PROVIDERS: ATTEND Urology
PROC: 0TF4XZZ Fragmentation in Left Kidney Pelvis, External Approach (ICD-10-PCS; principal; 2018-07-16 11:00)
DX: N20.0 Calculus of kidney (principal)
CPT/HCPCS: 82962; 94760

== ENCOUNTER 2018-07-30 11:02 | Day surgery (SDC) | payer MEDICARE, OTHER ==
[2018-07-27 17:40] VITALS: BMI 30.7
[2018-07-30 12:01] VITALS: TEMP 98.1
[2018-07-30] MEDS ORDERED: MIDAZOLAM HCL 2 MG/2 ML SINGLE DOSE VIAL ONE ×2 (13:35→13:40)
--- NOTE | 2018-07-30 14:14 | OP ---
Operative Note - Note: Operative Date: 07/30/18 Pre-Operative Diagnosis: Right Renal stone Operation: Right ESWL Findings: 5 mm Right upper pole kidney stone Post-Operative Diagnosis: Same as Pre-op Surgeon: Gelacio Anderson Anesthesia: Fractional Estimated Blood Loss (mls): 0
[2018-07-30 20:04] VITALS: BP 132/84; PULSE 60
--- NOTE | 2018-07-30 21:56 | OP ---
DATE OF OPERATION: 07/30/2018 PREOPERATIVE DIAGNOSIS: Right renal stone. POSTOPERATIVE DIAGNOSIS: Right renal stone. PROCEDURE: Right extracorporeal shock wave lithotripsy. ATTENDING: Jatinder Morris MD ANESTHESIA: Fractional. DESCRIPTION OF OPERATION: The patient was brought in the operating room and placed in a supine position on the operating room table. Ultrasonography and fluoroscopy were performed. A 5-mm right upper pole stone was identified. Anesthesia was then administered. Preoperative antibiotics were also given. Shock wave lithotripsy was then started; 2500 impulses at 17 joules of power were administered to the stone with excellent fragmentation noted under real-time ultrasonography and fluoroscopy with no complications noted. The disposition of the patient was to the recovery room. JATINDER MORRIS M.D. [id number]
== END 2018-07-30 15:30 | disposition home or self-care (01) ==
LOC: JASU-SURG 11:02
PROVIDERS: ATTEND Urology
PROC: 0TF3XZZ Fragmentation in Right Kidney Pelvis, External Approach (ICD-10-PCS; principal; 2018-07-30 13:15)
DX: N20.0 Calculus of kidney (principal)
CPT/HCPCS: 82962

== ENCOUNTER 2023-04-13 07:43 | Inpatient (IN) | payer OTHER ==
[2023-04-13 07:51] VITALS: BMI 32.3
[2023-04-13] MEDS ORDERED: ACETAMINOPHEN 500 MG TABLET (FP) PO ONE (08:39)
[2023-04-13] MEDS ORDERED: ACETAMINOPHEN 1000 MG/100 ML BAG IVPB ONE ×2 (08:45→15:58)
[2023-04-13] MEDS ORDERED: ACETAMINOPHEN INJECTION 100 ML IVPB ONE ×3 (08:58→16:40)
[2023-04-13 10:14] LABS: EPI CELLS 11 /uL (0-25.1); HYALINE CASTS 5 /uL (0-3.1); PH,URINE 8.5 (5.0-8.0); URINE APPEARANCE CLOUDY; URINE BACTERIA 8990 /uL (0-1359); URINE BILIRUBIN NEGATIVE (NEGATIVE); URINE COLOR YELLOW; URINE GLUCOSE (UA) NEGATIVE (NEGATIVE); URINE KETONE TRACE (NEGATIVE); URINE LEUK ESTERASE 2+ (NEGATIVE); URINE NITRITE POSITIVE (NEGATIVE); URINE PROTEIN TRACE (NEGATIVE); URINE RBC 7 /uL (0-23.9); URINE WBC 634 /uL (0-25.8)
[2023-04-13 10:18] LABS: HEMATOCRIT 37.7 % (35.4-49); HEMOGLOBIN 12.9 GM/dL (11.7-16.9); MCH 31.8 pg (25.7-33.7); MCHC 34.1 g/dl (32.0-35.9); MEAN CELL VOLUME 93.2 fl (80-96); MEAN PLT VOLUME 10.2 fl (7.5-11.1); PLATELET COUNT 190 10^3/uL (134-434); RBC 4.05 M/mm3 (4.00-5.60); RDW 14.6 % (11.9-15.9); WHITE BLOOD COUNT 25.7 K/mm3 (4.0-10.0)
[2023-04-13 10:25] LABS: POTASSIUM 3.4 mmol/L (3.5-5.1)
[2023-04-13] MEDS ORDERED: CEFTRIAXONE 1,000 MG in DEXTROSE 5%-WATER - 50 ML IVPB ONE (10:25)
[2023-04-13] MEDS ORDERED: SODIUM CHLORIDE 0.9% 500 ML INFUS.BAG IV ONE (10:26)
[2023-04-13 10:32] LABS: BLOOD UREA NITROGEN 22.8 mg/dL (7-18); CALCIUM 8.5 mg/dL (8.5-10.1)
[2023-04-13 10:33] LABS: ALBUMIN 3.6 g/dl (3.4-5.0)
[2023-04-13 10:35] LABS: CREATININE 1.5 mg/dL (0.55-1.3)
[2023-04-13] MEDS ORDERED: CEFTRIAXONE 1 GM/50 ML BAG ONE (10:36)
[2023-04-13 10:37] LABS: BILIRUBIN,TOTAL 1.2 mg/dL (0.2-1); TOT PROT 7.7 g/dl (6.4-8.2)
[2023-04-13 11:11] LABS: ANISOCYTOSIS 1+; MACROCYTOSIS 0
[2023-04-13] MEDS ORDERED: SODIUM CHLORIDE 0.9% 1000 ML INFUS.BAG IV ONE (11:53)
[2023-04-13 13:22] LABS: INR 1.24 (0.83-1.09); PROTHROMBIN TIME (PATIENT) 14.4 SEC (9.7-13.0)
[2023-04-13 13:25] LABS: ACTIVATED PTT 28.5 SECONDS (25.2-36.5)
[2023-04-13] MEDS ORDERED: FENTANYL CITRATE/PF 50 MCG/ML VIAL ONE (15:03)
[2023-04-13] MEDS ORDERED: FENTANYL CITRATE/PF 50 MCG/ML VIAL IVPUSH ONE (15:05)
[2023-04-13] MEDS ORDERED: methylPREDNISolone NA SUCC 125 MG/2 ML VIAL IVPUSH ONE (16:11)
[2023-04-13] MEDS ORDERED: MAGNESIUM SULF 50% (8.12 MEQ/2 ML-1 GM VIAL) IVPB ONE (16:11)
[2023-04-13] MEDS ORDERED: methylPREDNISolone NA SUCC 125 MG/2 ML VIAL ONE (16:11)
[2023-04-13] MEDS ORDERED: RACEPINEPHRINE IH SOL 2.25% 11.25 MG/0.5 ML VIAL IH ONE (16:21)
[2023-04-13] MEDS ORDERED: RACEPINEPHRINE IH SOL 2.25% 11.25 MG/0.5 ML VIAL NEB ONE (16:22)
[2023-04-13] MEDS: ALBUTEROL SO4 2.5/IPRATROPIUM 0.5 INH SOL 3 ML VIAL.NEB. NEB SCH (16:45)
[2023-04-13] MEDS ORDERED: ACETAMINOPHEN 1000 MG/100 ML BAG IVPB PRN (17:49)
[2023-04-13] MEDS ORDERED: morphine CARPU-JECT 2 MG/1 ML DISP.SYRIN IVPUSH PRN (17:49)
[2023-04-13] MEDS ORDERED: RACEPINEPHRINE IH SOL 2.25% 11.25 MG/0.5 ML VIAL IH PRN (17:50)
[2023-04-13] MEDS ORDERED: ALBUTEROL SO4 0.083% IH SOL 2.5 MG/3 ML VIAL.NEB. NEB PRN (17:50)
[2023-04-13] MEDS ORDERED: ALBUTEROL SO4 2.5/IPRATROPIUM 0.5 INH SOL 3 ML VIAL.NEB. NEB PRN (18:00)
[2023-04-13] MEDS: SODIUM CHLORIDE 1,000 ML IV SCH (20:00)
[2023-04-13] MEDS ORDERED: DEXAMETHASONE SOD PHOSPHATE 10 MG/1 ML VIAL ONE ×2 (20:42→20:49)
[2023-04-13] MEDS ORDERED: ATORVASTATIN CA 40 MG TABLET (FP) ONE (20:42)
[2023-04-13] MEDS ORDERED: HEPARIN NA (PORCINE) 5,000 UNITS/ML 1ML VIAL ONE ×2 (20:43→20:49)
[2023-04-13] MEDS: DEXAMETHASONE SOD PHOSPHATE 10 MG/1 ML VIAL IVPUSH SCH (21:09)
[2023-04-13] MEDS: ATORVASTATIN CA 40 MG TABLET (FP) PO SCH (21:10)
[2023-04-13] MEDS: HEPARIN NA (PORCINE) 5,000 UNITS/ML 1ML VIAL SQ SCH (21:10)
[2023-04-13] MEDS: BUDESONIDE/FORMETEROL FUMARATE 160/4.5 mcg INHALER IH SCH (21:11)
[2023-04-13] MEDS: INSULIN SLIDING SCALE (NOVOLOG) 1 VIAL SQ SCH (21:21)
[2023-04-14] MEDS: HEPARIN NA (PORCINE) 5,000 UNITS/ML 1ML VIAL SQ SCH ×3 (06:27→21:15)
[2023-04-14] MEDS ORDERED: INSULIN (NOVOLOG) ASPART 100 UNITS/ML 10ML VIAL ONE ×4 (06:29→21:42)
[2023-04-14] MEDS: INSULIN SLIDING SCALE (NOVOLOG) 1 VIAL SQ SCH ×4 (06:30→21:53)
[2023-04-14 07:28] LABS: HEMATOCRIT 34.4 % (35.4-49); HEMOGLOBIN 11.9 GM/dL (11.7-16.9); MCH 32.1 pg (25.7-33.7); MCHC 34.4 g/dl (32.0-35.9); MEAN CELL VOLUME 93.1 fl (80-96); MEAN PLT VOLUME 10.2 fl (7.5-11.1); PLATELET COUNT 141 10^3/uL (134-434); RDW 14.2 % (11.9-15.9); WHITE BLOOD COUNT 24.9 K/mm3 (4.0-10.0)
[2023-04-14 07:29] LABS: POTASSIUM 3.8 mmol/L (3.5-5.1)
[2023-04-14 07:31] LABS: CALCIUM 8.1 mg/dL (8.5-10.1)
[2023-04-14 07:32] LABS: ALBUMIN 2.9 g/dl (3.4-5.0); MAGNESIUM 2.2 mg/dL (1.8-2.4)
[2023-04-14 07:35] LABS: CREATININE 0.8 mg/dL (0.55-1.3); PHOSPHOROUS 2.8 mg/dL (2.5-4.9)
[2023-04-14 07:37] LABS: BILIRUBIN,TOTAL 0.7 mg/dL (0.2-1)
[2023-04-14 09:14] LABS: ANISOCYTOSIS 1+; MACROCYTOSIS 0; OVALOCYTE 2+
[2023-04-14] MEDS: TAMSULOSIN HCL 0.4 MG CAP PO SCH (09:51)
[2023-04-14] MEDS: DEXAMETHASONE SOD PHOSPHATE 10 MG/1 ML VIAL IVPUSH SCH ×2 (09:51→21:15)
[2023-04-14] MEDS: BUDESONIDE/FORMETEROL FUMARATE 160/4.5 mcg INHALER IH SCH ×2 (09:53→21:16)
[2023-04-14] MEDS ORDERED: CEFTRIAXONE 1 GM in DEXTROSE 5%-WATER - 50 ML IVPB SCH (10:00)
[2023-04-14] MEDS ORDERED: PIPERACILLIN/TAZOB 4.5 GM 4.5 GM in DEXTROSE 5%-WATER 100 ML IVPB ONE (12:00)
[2023-04-14] MEDS: SOLIFENACIN SUCCINATE 5 MG TAB PO SCH (12:12)
[2023-04-14] MEDS: SODIUM CHLORIDE 1,000 ML IV SCH (17:08)
[2023-04-14] MEDS ORDERED: PIPERACILLIN/TAZOB 3.375 GM 3.375 GM in DEXTROSE 5%-WATER - 50 ML IVPB SCH (18:00)
[2023-04-14] MEDS: ATORVASTATIN CA 40 MG TABLET (FP) PO SCH (21:15)
[2023-04-15] MEDS: PIPERACILLIN/TAZOB 3.375 GM 3.375 GM in DEXTROSE 5%-WATER - 50 ML IVPB SCH ×2 (02:52→09:34)
[2023-04-15] MEDS: HEPARIN NA (PORCINE) 5,000 UNITS/ML 1ML VIAL SQ SCH ×3 (05:36→21:43)
[2023-04-15] MEDS ORDERED: INSULIN (NOVOLOG) ASPART 100 UNITS/ML 10ML VIAL ONE ×2 (06:03→12:12)
[2023-04-15] MEDS: INSULIN SLIDING SCALE (NOVOLOG) 1 VIAL SQ SCH ×4 (06:05→22:16)
[2023-04-15 08:03] LABS: HEMATOCRIT 33.6 % (35.4-49); HEMOGLOBIN 11.7 GM/dL (11.7-16.9); MCH 32.4 pg (25.7-33.7); MCHC 34.8 g/dl (32.0-35.9); MEAN CELL VOLUME 93.1 fl (80-96); MEAN PLT VOLUME 10.9 fl (7.5-11.1); PLATELET COUNT 146 10^3/uL (134-434); RBC 3.61 M/mm3 (4.00-5.60); RDW 14.5 % (11.9-15.9); WHITE BLOOD COUNT 26.5 K/mm3 (4.0-10.0)
[2023-04-15 08:17] LABS: POTASSIUM 3.8 mmol/L (3.5-5.1)
[2023-04-15 08:20] LABS: ALBUMIN 2.9 g/dl (3.4-5.0); CALCIUM 8.3 mg/dL (8.5-10.1)
[2023-04-15 08:21] LABS: BLOOD UREA NITROGEN 17.4 mg/dL (7-18)
[2023-04-15 08:23] LABS: CREATININE 0.8 mg/dL (0.55-1.3); PHOSPHOROUS 2.7 mg/dL (2.5-4.9)
[2023-04-15 08:25] LABS: BILIRUBIN,TOTAL 0.5 mg/dL (0.2-1)
[2023-04-15] MEDS: TAMSULOSIN HCL 0.4 MG CAP PO SCH (09:32)
[2023-04-15] MEDS: SOLIFENACIN SUCCINATE 5 MG TAB PO SCH (09:33)
[2023-04-15] MEDS: DEXAMETHASONE SOD PHOSPHATE 10 MG/1 ML VIAL IVPUSH SCH (09:33)
[2023-04-15] MEDS: BUDESONIDE/FORMETEROL FUMARATE 160/4.5 mcg INHALER IH SCH ×2 (09:35→21:44)
[2023-04-15] MEDS: metoPROLOL SUCCINATE 25 MG TAB.SR.24H (FP) PO SCH (14:52)
[2023-04-15] MEDS: ATORVASTATIN CA 40 MG TABLET (FP) PO SCH (21:43)
[2023-04-16] MEDS: INSULIN SLIDING SCALE (NOVOLOG) 1 VIAL SQ SCH ×4 (06:06→21:47)
[2023-04-16] MEDS: HEPARIN NA (PORCINE) 5,000 UNITS/ML 1ML VIAL SQ SCH ×3 (06:10→21:44)
[2023-04-16 08:32] LABS: HEMATOCRIT 35.1 % (35.4-49); MCH 31.7 pg (25.7-33.7); MCHC 34.2 g/dl (32.0-35.9); MEAN CELL VOLUME 92.8 fl (80-96); MEAN PLT VOLUME 11.1 fl (7.5-11.1); PLATELET COUNT 166 10^3/uL (134-434); RBC 3.78 M/mm3 (4.00-5.60); RDW 14.4 % (11.9-15.9)
[2023-04-16 08:55] LABS: POTASSIUM 4.1 mmol/L (3.5-5.1)
[2023-04-16 08:58] LABS: CALCIUM 8.5 mg/dL (8.5-10.1)
[2023-04-16 08:59] LABS: MAGNESIUM 2.1 mg/dL (1.8-2.4)
[2023-04-16 09:01] LABS: BLOOD UREA NITROGEN 22.5 mg/dL (7-18)
[2023-04-16 09:02] LABS: CREATININE 0.7 mg/dL (0.55-1.3); PHOSPHOROUS 3.4 mg/dL (2.5-4.9)
[2023-04-16 09:03] LABS: BILIRUBIN,TOTAL 0.5 mg/dL (0.2-1); TOT PROT 6.9 g/dl (6.4-8.2)
[2023-04-16] MEDS: CEFTRIAXONE 1 GM in DEXTROSE 5%-WATER - 50 ML IVPB SCH (09:06)
[2023-04-16] MEDS: metoPROLOL SUCCINATE 25 MG TAB.SR.24H (FP) PO SCH (09:06)
[2023-04-16] MEDS: SOLIFENACIN SUCCINATE 5 MG TAB PO SCH (09:06)
[2023-04-16] MEDS: BUDESONIDE/FORMETEROL FUMARATE 160/4.5 mcg INHALER IH SCH ×2 (09:06→21:46)
[2023-04-16] MEDS: TAMSULOSIN HCL 0.4 MG CAP PO SCH (09:06)
[2023-04-16 10:09] LABS: ANISOCYTOSIS 0; HELMET CELLS 0; HOWELL-JOLLY BODIES 0; MACROCYTOSIS 0; OVALOCYTE 0; ROULEAU 0; SICKELED CELLS 0; TARGET CELLS 0; TEAR DROP CELLS 0; TOXIC GRANULATION 0
[2023-04-16] MEDS ORDERED: INSULIN (NOVOLOG) ASPART 100 UNITS/ML 10ML VIAL ONE (11:28)
[2023-04-16] MEDS ORDERED: CEFTRIAXONE 1 GM in DEXTROSE 5%-WATER - 50 ML IVPB SCH (15:00)
[2023-04-16] MEDS: ATORVASTATIN CA 40 MG TABLET (FP) PO SCH (21:44)
[2023-04-17] MEDS: INSULIN SLIDING SCALE (NOVOLOG) 1 VIAL SQ SCH ×4 (06:04→21:47)
[2023-04-17] MEDS: HEPARIN NA (PORCINE) 5,000 UNITS/ML 1ML VIAL SQ SCH ×2 (06:13→14:59)
[2023-04-17 07:33] LABS: BASO % 0.3 % (0-2.0); HEMATOCRIT 36.8 % (35.4-49); HEMOGLOBIN 12.7 GM/dL (11.7-16.9); LYMPH % 27.6 % (8-40); MCH 32.3 pg (25.7-33.7); MCHC 34.6 g/dl (32.0-35.9); MEAN CELL VOLUME 93.3 fl (80-96); MEAN PLT VOLUME 11.1 fl (7.5-11.1); MONO % 6.4 % (3.8-10.2); NEUT % 65.7 % (42.8-82.8); PLATELET COUNT 175 10^3/uL (134-434); RBC 3.94 M/mm3 (4.00-5.60); RDW 14.6 % (11.9-15.9); WHITE BLOOD COUNT 9.9 K/mm3 (4.0-10.0)
[2023-04-17 07:49] LABS: POTASSIUM 3.9 mmol/L (3.5-5.1)
[2023-04-17 07:53] LABS: BLOOD UREA NITROGEN 21.2 mg/dL (7-18); CALCIUM 8.4 mg/dL (8.5-10.1)
[2023-04-17 07:56] LABS: CREATININE 0.7 mg/dL (0.55-1.3)
[2023-04-17] MEDS: TAMSULOSIN HCL 0.4 MG CAP PO SCH (08:34)
[2023-04-17] MEDS: metoPROLOL SUCCINATE 25 MG TAB.SR.24H (FP) PO SCH (09:21)
[2023-04-17] MEDS: CEFTRIAXONE 1 GM in DEXTROSE 5%-WATER - 50 ML IVPB SCH (09:21)
[2023-04-17] MEDS: SOLIFENACIN SUCCINATE 5 MG TAB PO SCH (09:22)
[2023-04-17] MEDS: BUDESONIDE/FORMETEROL FUMARATE 160/4.5 mcg INHALER IH SCH ×2 (09:23→21:47)
[2023-04-17] MEDS: ATORVASTATIN CA 40 MG TABLET (FP) PO SCH (21:48)
[2023-04-18] MEDS: INSULIN SLIDING SCALE (NOVOLOG) 1 VIAL SQ SCH ×4 (06:27→22:37)
[2023-04-18 07:34] LABS: POTASSIUM 3.7 mmol/L (3.5-5.1)
[2023-04-18 07:39] LABS: ALBUMIN 3.2 g/dl (3.4-5.0); CALCIUM 8.6 mg/dL (8.5-10.1)
[2023-04-18 07:40] LABS: MAGNESIUM 1.7 mg/dL (1.8-2.4)
[2023-04-18 07:42] LABS: CREATININE 0.9 mg/dL (0.55-1.3); PHOSPHOROUS 4.3 mg/dL (2.5-4.9)
[2023-04-18 07:43] LABS: BILIRUBIN,TOTAL 1.1 mg/dL (0.2-1); TOT PROT 7.8 g/dl (6.4-8.2)
[2023-04-18 08:17] LABS: BASO % 0.7 % (0-2.0); EOS % 0.9 % (0-4.5); HEMOGLOBIN 14.6 GM/dL (11.7-16.9); LYMPH % 28.5 % (8-40); MCH 31.8 pg (25.7-33.7); MEAN CELL VOLUME 93.6 fl (80-96); MEAN PLT VOLUME 10.9 fl (7.5-11.1); NEUT % 63.9 % (42.8-82.8); PLATELET COUNT 180 10^3/uL (134-434); RDW 14.4 % (11.9-15.9); WHITE BLOOD COUNT 10.5 K/mm3 (4.0-10.0)
[2023-04-18 09:26] LABS: PLATELET ESTIMATE ADEQUATE
[2023-04-18] MEDS: TAMSULOSIN HCL 0.4 MG CAP PO SCH (09:37)
[2023-04-18] MEDS: BUDESONIDE/FORMETEROL FUMARATE 160/4.5 mcg INHALER IH SCH ×2 (09:37→22:38)
[2023-04-18] MEDS: SOLIFENACIN SUCCINATE 5 MG TAB PO SCH (09:37)
[2023-04-18] MEDS: CEFTRIAXONE 1 GM in DEXTROSE 5%-WATER - 50 ML IVPB SCH (09:37)
[2023-04-18] MEDS: metoPROLOL SUCCINATE 25 MG TAB.SR.24H (FP) PO SCH (09:37)
[2023-04-18] MEDS ORDERED: ACETAMINOPHEN INJECTION 100 ML IVPB ONE (12:07)
[2023-04-18] MEDS ORDERED: ALBUTEROL SO4 2.5/IPRATROPIUM 0.5 INH SOL 3 ML VIAL.NEB. NEB PRN ×2 (13:03→13:32)
[2023-04-18] MEDS ORDERED: PROPOFOL 20 ML ONE (13:50)
[2023-04-18] MEDS ORDERED: HEPARIN NA (PORCINE) 5,000 UNITS/ML 1ML VIAL SQ SCH (14:00)
[2023-04-18] MEDS ORDERED: INSULIN SLIDING SCALE (NOVOLOG) 1 VIAL SQ SCH (16:30)
[2023-04-18] MEDS ORDERED: SODIUM CHLORIDE 500 ML IV STA (21:40)
[2023-04-18] MEDS ORDERED: ATORVASTATIN CA 40 MG TABLET (FP) PO SCH ×2 (22:00)
[2023-04-18] MEDS ORDERED: BUDESONIDE/FORMETEROL FUMARATE 160/4.5 mcg INHALER IH SCH (22:00)
[2023-04-18 22:50] LABS: N-TERMINAL BNP 152.4 pg/ml (5-125)
[2023-04-19] MEDS: INSULIN SLIDING SCALE (NOVOLOG) 1 VIAL SQ SCH ×2 (06:35→11:26)
[2023-04-19 08:18] LABS: BASO % 0.1 % (0-2.0); EOS % 2.1 % (0-4.5); HEMATOCRIT 36.8 % (35.4-49); HEMOGLOBIN 12.6 GM/dL (11.7-16.9); LYMPH % 18.5 % (8-40); MCH 31.9 pg (25.7-33.7); MCHC 34.1 g/dl (32.0-35.9); MEAN CELL VOLUME 93.5 fl (80-96); MEAN PLT VOLUME 10.5 fl (7.5-11.1); MONO % 6.7 % (3.8-10.2); NEUT % 72.6 % (42.8-82.8); PLATELET COUNT 184 10^3/uL (134-434); RBC 3.94 M/mm3 (4.00-5.60); RDW 14.5 % (11.9-15.9); WHITE BLOOD COUNT 10.2 K/mm3 (4.0-10.0)
[2023-04-19 08:25] LABS: POTASSIUM 4.2 mmol/L (3.5-5.1)
[2023-04-19 08:30] LABS: ALBUMIN 2.7 g/dl (3.4-5.0); CALCIUM 8.1 mg/dL (8.5-10.1)
[2023-04-19] MEDS ORDERED: TAMSULOSIN HCL 0.4 MG CAP PO SCH ×2 (08:30)
[2023-04-19 08:31] LABS: BLOOD UREA NITROGEN 16.6 mg/dL (7-18); MAGNESIUM 1.8 mg/dL (1.8-2.4)
[2023-04-19 08:34] LABS: BILIRUBIN,TOTAL 0.9 mg/dL (0.2-1); CREATININE 0.9 mg/dL (0.55-1.3); TOT PROT 6.5 g/dl (6.4-8.2)
[2023-04-19] MEDS: BUDESONIDE/FORMETEROL FUMARATE 160/4.5 mcg INHALER IH SCH (09:44)
[2023-04-19 09:50] VITALS: BP 105/67; PULSE 65; RESP 18; TEMP 98.3
[2023-04-19] MEDS ORDERED: metoPROLOL SUCCINATE 25 MG TAB.SR.24H (FP) PO SCH ×2 (10:00)
[2023-04-19] MEDS ORDERED: HEPARIN NA (PORCINE) 5,000 UNITS/ML 1ML VIAL SQ SCH (10:00)
[2023-04-19] MEDS ORDERED: SOLIFENACIN SUCCINATE 5 MG TAB PO SCH ×2 (10:00)
[2023-04-19] MEDS ORDERED: CEFTRIAXONE 1 GM in DEXTROSE 5%-WATER - 50 ML IVPB SCH (10:00)
[2023-04-27 21:06] LABS: CA OXALATE MONOHYDR. 5 % (.); WEIGHT 6 mg (.)
== END 2023-04-19 12:38 | disposition home or self-care (01) | DRG 854 ==
LOC: JER 07:43 → JERBED 13:08 → J4W 04-14 00:56
PROVIDERS: ADMIT Internal Medicine; ATTEND Internal Medicine
PROC: 0T9030Z Drainage of Right Kidney with Drainage Device, Percutaneous Approach (ICD-10-PCS; 2023-04-13)
PROC: 0T768DZ Dilation of Right Ureter with Intraluminal Device, Via Natural or Artificial Opening Endoscopic (ICD-10-PCS; principal; 2023-04-18 09:00)
PROC: 0TC68ZZ Extirpation of Matter from Right Ureter, Via Natural or Artificial Opening Endoscopic (ICD-10-PCS; 2023-04-18 09:00)
PROC: BT1DZZZ Fluoroscopy of Right Kidney, Ureter and Bladder (ICD-10-PCS; 2023-04-18 09:00)
PROC: 0TP5X0Z Removal of Drainage Device from Kidney, External Approach (ICD-10-PCS; 2023-04-18 09:00)
DX: A41.9 Sepsis, unspecified organism (principal); I45.2 Bifascicular block; N17.9 Acute kidney failure, unspecified; N13.6 Pyonephrosis; I10 Essential (primary) hypertension; E78.5 Hyperlipidemia, unspecified; E11.9 Type 2 diabetes mellitus without complications; J45.20 Mild intermittent asthma, uncomplicated; R06.1 Stridor; T40.415A Adverse effect of fentanyl or fentanyl analogs, initial encounter; E66.9 Obesity, unspecified; I45.10 Unspecified right bundle-branch block; Z68.32 Body mass index [BMI] 32.0-32.9, adult
CPT/HCPCS: 0241U-QW; 36415; 50432; 71045-TC-FY; 71046-TC-FY; 74176-TC; 76000-TC-FY; 80048; 80053; 80061; 81003; 82360; 82962; 83036; 83690; 83735; 83880; 84100; 84443; 84484; 85025; 85027; 85610; 85730; 87040; 87070; 87075; 87086; 87102; 87116; 87186; 87205; 87206; 87210; 88300-TC; 93005; 93010; 94760; 99285-25; A4358; C1729; C1758; C1769; C1894; C2617; J1100; J1644